=== PATIENT | female | born 1990 | race Caucasian/White ===

== ENCOUNTER 2023-09-14 15:23 | Outpatient (AMB) | payer BC, SELFPAY ==
--- NOTE | 2023-09-14 15:26 | HO.NEPHOV_ITS ---
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 She was under stress going through divorce. She has 2 children. Her blood pressure during her pregnancies were very well controlled. She had no preeclampsia. There is no history of any proteinuria. Workup done in the past did not show any etiology for hypertension. She denies nausea, vomiting, diarrhea, chest pain, shortness of breath, proximal nocturnal dyspnea, orthopnea, pedal edema, urinary symptoms or orthostasis. She does not consume excess sodium in the diet or any nonsteroidal anti-inflammatories. She has no history of drug use. She maintains good hydration and it compliance with her medications. There were no new active issues at the time this office visit. [facility] Medical History (Updated 09/28/23 @ 09:50 by Jose Zamora MD) Hypertension Surgical History (Updated 09/14/23 @ 15:30 by Camila Del Angel MA) H/O rhinoplasty H/O section History of tonsillectomy H/O hernia repair Family History (Updated 09/14/23 @ 15:31 by Camila Del Angel MA) Father Hypertension Cancer Maternal Aunt Diabetes Maternal Grandfather Diabetes Social History (Updated 09/14/23 @ 15:32 by Camila Del Angel MA) Alcohol intake: never Patient Tobacco Use Status: Never used Tobacco Physical Exam Vital Signs: Last Vital Signs Pulse 84 09/14/23 15:28 BP 120/80 09/14/23 15:28 Pulse Ox 99 09/14/23 15:28 Oxygen Delivery Method Room Air 09/14/23 15:28 BMI result Body Mass Index 23.7 Const General: comfortable and no acute distress Orientation/consciousness: patient oriented x3 HEENT Head: Yes normocephalic Mouth: Normal oral and palatal mucosa present Eyes EOM: EOMs intact bilaterally Neck Neck: Yes supple Resp Auscultation: clear to auscultation bilaterally Cardio Jugular venous distension: no JVD Rate: regular rate GI Palpation (GI): Soft to palpation Auscultation: normal bowel sounds General: Yes no CVA tenderness Back/Spine/Pelvis Back: no CVA tenderness Skin General skin exam: no rashes or lesions noted Neuro General: patient oriented x3 and moves all extremities Extrem General: Yes no pedal edema Results Reviewed Nephrology Results: Sodium 140 mmol/L (135-145) 09/14/23 Potassium 3.6 mmol/L (3.3-5.1) 09/14/23 Chloride 107 mmol/L (96-108) 09/14/23 Carbon Dioxide 26 mmol/L (22-29) 09/14/23 BUN 19 mg/dL (9-16) H 09/14/23 Creatinine 0.78 mg/dL (0.5-1.4) 09/14/23 Urine Creatinine 273.26 mg/dL 09/14/23 Protein/Creatinin Ratio 0.05 (<0.2) 09/14/23 Assessment & Plan Assessment & Plan (1) Hypertension: Code(s): I10 - Essential (primary) hypertension Category: Medical Qualifiers: Hypertension type: primary hypertension Qualified Code(s): I10 - Essential (primary) hypertension Plan Ronda has longstanding hypertension. Her blood pressure has been well controlled on current medication regimen. She was extensively investigated for past it and secondary causes have been ruled out. Her renal functions are at baseline. She is not known to have any proteinuria. She could continue valsartan 80 mg daily. She is aware that she should stop angiotensin receptor mary if she ever gets or plan for . She does not take any excessive nonsteroidal anti-inflammatories and maintain good hydration. She was encouraged to keep up with low-sodium diet and continue lifestyle modifications. I did not make any medication changes today. All her questions were answered. Follow-up appointment given. Orders: Orders Blood Urea Nitrogen 09/14/23 I10 - Essential (primary) hypertension Electrolytes 09/14/23 I10 - Essential (primary) hypertension Creatinine 09/14/23 I10 - Essential (primary) hypertension Protein Creatinine Ratio, Ur 09/14/23 I10 - Essential (primary) hypertension Medications: New valsartan 80 mg PO DAILY 30 tabs 7RF Coding Level of Care Code Est Pt Level 4 (44329) Diagnoses Primary hypertension I10 Hypertension type: primary hypertension
[2023-09-14 15:28] VITALS: BP 120/80; PULSE 84; O2SAT 99; BMI 23.7
== END 2023-09-14 16:07 | disposition home or self-care (01) ==
PROVIDERS: Visit Provider Internal Medicine Nephrology
DX: I10 Essential (primary) hypertension (principal)
CPT/HCPCS: 99214

== ENCOUNTER → 2023-09-14 15:23 | Outpatient (BNVA) | payer BC, SELFPAY | PROVIDERS: Visit Provider Internal Medicine Nephrology ==

== ENCOUNTER 2023-09-14 15:55 | Outpatient (REF) | payer BC, SELFPAY ==
[2023-09-14 17:33] LABS: Anion Gap 11 (12-20); Blood Urea Nitrogen 19 mg/dL (9-16); Carbon Dioxide 26 mmol/L (22-29); Chloride 107 mmol/L (96-108); Estimated Glomerular Filt Rate > 60; Potassium 3.6 mmol/L (3.3-5.1); Sodium 140 mmol/L (135-145)
[2023-09-14 18:40] LABS: Creatinine Urine 273.26 mg/dL; Protein/Creatinine Ratio, Ur 0.05 (<0.2); Total Protein Urine Random 13 mg/dL (<12)
== END 2023-09-14 15:56 | disposition home or self-care (01) ==
LOC: HO.HKASLDS 15:55
PROVIDERS: Visit Provider Internal Medicine Nephrology
DX: I10 Essential (primary) hypertension (principal)
CPT/HCPCS: 36415; 80051; 82565; 82570; 84156; 84520

== ENCOUNTER 2024-03-14 09:22 | Outpatient (AMB) | payer BC, SELFPAY ==
--- NOTE | 2024-03-14 09:27 | HO.NEPHOV ---
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 She was under stress going through divorce. She has 2 children. Her blood pressure during her pregnancies were very well controlled. She had no preeclampsia. There is no history of any proteinuria. Workup done in the past did not show any etiology for hypertension. She denies nausea, vomiting, diarrhea, chest pain, shortness of breath, proximal nocturnal dyspnea, orthopnea, pedal edema, urinary symptoms or orthostasis. She does not consume excess sodium in the diet or any nonsteroidal anti-inflammatories. She has no history of drug use. She maintains good hydration and it compliance with her medications. There were no new active issues at the time this office visit. [facility] Medical History (Updated 09/28/23 @ 09:50 by Jose Zamora MD) Hypertension Surgical History H/O rhinoplasty H/O section History of tonsillectomy H/O hernia repair Family History Father Hypertension Cancer Maternal Aunt Diabetes Maternal Grandfather Diabetes Social History Alcohol intake: never Patient Tobacco Use Status: Never used Tobacco Review of Systems Const All systems reviewed & are unremarkable except as noted in HPI and below Physical Exam Vital Signs: Last Vital Signs BP 110/80 03/14/24 09:31 BMI result Body Mass Index 20.8 Const General: comfortable and no acute distress Orientation/consciousness: patient oriented x3 HEENT Head: Yes normocephalic Mouth: Normal oral and palatal mucosa present Eyes EOM: EOMs intact bilaterally Neck Neck: Yes supple Resp Auscultation: clear to auscultation bilaterally Cardio Jugular venous distension: no JVD Rate: regular rate GI Palpation (GI): Soft to palpation Auscultation: normal bowel sounds General: Yes no CVA tenderness Back/Spine/Pelvis Back: no CVA tenderness Skin General skin exam: no rashes or lesions noted Neuro General: patient oriented x3 and moves all extremities Extrem General: Yes no pedal edema Results Reviewed Nephrology Results: Sodium 140 mmol/L (135-145) 09/14/23 Potassium 3.6 mmol/L (3.3-5.1) 09/14/23 Chloride 107 mmol/L (96-108) 09/14/23 Carbon Dioxide 26 mmol/L (22-29) 09/14/23 BUN 19 mg/dL (9-16) H 09/14/23 Creatinine 0.78 mg/dL (0.5-1.4) 09/14/23 Urine Creatinine 273.26 mg/dL 09/14/23 Protein/Creatinin Ratio 0.05 (<0.2) 09/14/23 Assessment & Plan Assessment & Plan (1) Hypertension: Code(s): I10 - Essential (primary) hypertension Category: Medical Qualifiers: Hypertension type: primary hypertension Qualified Code(s): I10 - Essential (primary) hypertension August Bond has longstanding hypertension. Her blood pressure has been well controlled on current medication regimen. She was extensively investigated for past it and secondary causes have been ruled out. Her renal functions are at baseline. She is not known to have any proteinuria. She could continue valsartan 80 mg daily. She is aware that she should stop angiotensin receptor mary if she ever gets or plan for . She does not take any excessive nonsteroidal anti-inflammatories and maintain good hydration. She was encouraged to keep up with low-sodium diet and continue lifestyle modifications. I did not make any medication changes today. All her questions were answered. Follow-up appointment given Orders: Orders Electrolytes 1 Year I10 - Essential (primary) hypertension Creatinine 1 Year I10 - Essential (primary) hypertension Blood Urea Nitrogen 1 Year I10 - Essential (primary) hypertension Medications: Refilled valsartan 80 mg PO DAILY 90 tabs 3RF Coding Level of Care Code Est Pt Level 4 (06248) Diagnoses Primary hypertension I10 Hypertension type: primary hypertension
[2024-03-14 09:31] VITALS: BP 110/80; BMI 20.8
== END 2024-03-14 09:44 | disposition home or self-care (01) ==
PROVIDERS: Visit Provider Internal Medicine Nephrology
DX: I10 Essential (primary) hypertension (principal)
CPT/HCPCS: 99214

== ENCOUNTER → 2024-03-14 09:22 | Outpatient (BNVA) | payer BC, SELFPAY | PROVIDERS: Visit Provider Internal Medicine Nephrology ==

== ENCOUNTER 2025-03-13 09:26 | Outpatient (AMB) | payer OTHER, SELFPAY ==
--- NOTE | 2025-03-13 09:30 | HO.NEPHOV ---
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 She has 2 children. Her blood pressure during her pregnancies were very well controlled. She had no preeclampsia. There is no history of any proteinuria. Workup done in the past did not show any etiology for hypertension. She denies nausea, vomiting, diarrhea, chest pain, shortness of breath, proximal nocturnal dyspnea, orthopnea, pedal edema, urinary symptoms or orthostasis. She does not consume excess sodium in the diet or any nonsteroidal anti-inflammatories. She has no history of drug use. She maintains good hydration and it compliance with her medications. There were no new active issues at the time this office visit. [facility] Medical History (Updated 09/28/23 @ 09:50 by Jose Zamora MD) Hypertension Surgical History H/O rhinoplasty H/O section History of tonsillectomy H/O hernia repair Family History Father Hypertension Cancer Maternal Aunt Diabetes Maternal Grandfather Diabetes Social History Alcohol intake: never Patient Tobacco Use Status: Never used Tobacco Review of Systems Const All systems reviewed & are unremarkable except as noted in HPI and below Physical Exam Vital Signs: Last Vital Signs BP 122/84 03/13/25 09:32 BMI result Body Mass Index 20.9 Const General: comfortable and no acute distress Orientation/consciousness: patient oriented x3 HEENT Head: Yes normocephalic Mouth: Normal oral and palatal mucosa present Eyes EOM: EOMs intact bilaterally Neck Neck: Yes supple Resp Auscultation: clear to auscultation bilaterally Cardio Jugular venous distension: no JVD Rate: regular rate GI Palpation (GI): Soft to palpation Auscultation: normal bowel sounds General: Yes no CVA tenderness Back/Spine/Pelvis Back: no CVA tenderness Skin General skin exam: no rashes or lesions noted Neuro General: patient oriented x3 and moves all extremities Extrem General: Yes no pedal edema Assessment & Plan Assessment & Plan (1) Hypertension: Code(s): I10 - Essential (primary) hypertension Category: Medical Qualifiers: Hypertension type: primary hypertension Qualified Code(s): I10 - Essential (primary) hypertension Plan Ronda has longstanding hypertension. Her blood pressure has been well controlled on current medication regimen. She was extensively investigated for past it and secondary causes have been ruled out. Her renal functions are at baseline. She is not known to have any proteinuria. She could continue valsartan 80 mg daily. She is aware that she should stop angiotensin receptor mary if she ever gets or plan for . She does not take any excessive nonsteroidal anti-inflammatories and maintain good hydration. She was encouraged to keep up with low-sodium diet and continue lifestyle modifications. I did not make any medication changes today. All her questions were answered. Follow-up appointment given Orders: Orders Protein Creatinine Ratio, Ur Today I10 - Essential (primary) hypertension Electrolytes Today I10 - Essential (primary) hypertension Blood Urea Nitrogen Today I10 - Essential (primary) hypertension Creatinine Today I10 - Essential (primary) hypertension Medications: Refilled valsartan 80 mg PO DAILY 90 tabs 3RF Coding Level of Care Code Est Pt Level 4 (96231) Diagnoses Primary hypertension I10 Hypertension type: primary hypertension
[2025-03-13 09:32] VITALS: BP 122/84; BMI 20.9
== END 2025-03-13 09:51 | disposition home or self-care (01) ==
PROVIDERS: PCP Internal Medicine; Visit Provider Internal Medicine Nephrology
DX: I10 Essential (primary) hypertension (principal)
CPT/HCPCS: 99214

== ENCOUNTER 2025-03-13 09:26 | Outpatient (REF) | payer OTHER, SELFPAY ==
[2025-03-13 13:57] LABS: Anion Gap 13 (12-20); Blood Urea Nitrogen 20 mg/dL (9-16); Carbon Dioxide 28 mmol/L (22-29); Chloride 105 mmol/L (96-108); Estimated Glomerular Filt Rate > 60; Potassium 4.1 mmol/L (3.3-5.1); Sodium 142 mmol/L (135-145)
[2025-03-13 14:33] LABS: Protein/Creatinine Ratio, Ur 0.06 (<0.2); Total Protein Urine Random 9 mg/dL (<12)
== END 2025-03-13 09:27 | disposition home or self-care (01) ==
LOC: HO.HKASLDS 09:26
PROVIDERS: PCP Internal Medicine; Visit Provider Internal Medicine Nephrology
DX: I10 Essential (primary) hypertension (principal); Z79.899 Other long term (current) drug therapy
CPT/HCPCS: 36415; 80051; 82565; 82570; 84156; 84520